=== PATIENT | female | born 1980 | race Caucasian/White ===

== ENCOUNTER 2017-02-26 12:32 | Emergency (ER) | payer MEDICAID ==
[~2017-02-26] VITALS: Ht 152.4 cm; Wt 105.5 kg
[2017-02-26 13:03] VITALS: Ht 152.4 cm; Wt 105.5 kg
[2017-02-26] MEDS ORDERED: ACET-2158 GTB (14:48)
--- NOTE | 2017-02-26 14:56 | ERD ---
ER Documentation Chief Complaint Date/Time DATE: 02/26/17 TIME: 14:51 Chief Complaint NOSEBLEED X2 HOURS. BLEEDING NOW CONTROLLED. 38 WKS . HPI 36-year-old female who is approximately 38 weeks presents the emergency department complaining of nosebleed 2 hours. Upon arrival patient's bleeding has subsided. Patient states that 2 weeks ago she experienced a nosebleed and applied ice to her forehead which stopped the bleeding. She states that today however applying ice to her forehead did not stop the bleeding. Patient notes that upon arrival and nurse applied pressure to the area which subsided the nosebleed. Patient notes an associated 2 out of 10 circumferential headache. Patient denies any fever, cough, congestion, or dizziness. Patient denies any abdominal or pelvic pain. Patient denies any vaginal bleeding or discharge. ROS All systems reviewed and are negative except as per history of present illness. Medications Home Meds Active Scripts Acetaminophen (TYLENOL 325 MG TAB) 325 Mg Tab, 650 MG GTB Q6 for 3 Days, TAB Prov:DEVANG NGUYEN PA-C 02/26/17 PMhx/Soc Medical and Surgical Hx: pt denies Medical Hx, pt denies Surgical Hx Hx Alcohol Use: No Hx Substance Use: No Hx Tobacco Use: No Smoking Status: Never smoker Physical Exam Vitals Vital Signs Date Time Temp Pulse Resp B/P Pulse Ox O2 Delivery O2 Flow Rate FiO2 02/26/17 13:03 98.8 96 20 119/72 98 Physical Exam Const: Well-developed, well-nourished, no acute distress Head: Atraumatic Eyes: Normal Conjunctiva ENT: No active bleeding during exam. Nares patent. Normal External Ears, Nose and Mouth. Neck: Full range of motion..~ No meningismus. Resp: Clear to auscultation bilaterally Cardio: Regular rate and rhythm, no murmurs Abd: Soft, non tender, non distended. Normal bowel sounds Skin: No petechiae or rashes Back: No midline or flank tenderness Ext: No cyanosis, or edema Neur: Awake and alert Psych: Normal Mood and Affect Procedures/MDM 36-year-old female who is 38 weeks presents with epistaxis which subsided upon pressure to the nares prior to arrival. Vital signs reviewed. Patient afebrile, normotensive, non-hypoxic and not tachycardic upon arrival. Patient denies any abdominal pain or pelvic cramping. Patient denies vaginal bleeding or discharge. Patient notes associated mild headache. The patient's headache is unlikely related to serious etiology. The patient does not exhibit any clinical signs or symptoms, and has no risk factors to suggest headache etiology such as subarachnoid hemorrhage, acute vertebral or carotid dissection , intracranial mass, epidural, subdural hematoma, dural venous sinus thrombosis , giant cell arteritis, or pseudotumor cerebri. Patient to continue Tylenol for headache pain as needed and follow-up with OB/ [facility] as scheduled. Based on patient's history of present illness and physical examination the decision was made to discharge. The patient was re-evaluated after ED treatment and stabilizing measures, and symptoms have improved. There is no evidence of life threatening injuries or illnesses at this time. On re-examination, patient resting in no distress, stable vital signs, reports feeling better and safe for discharge with outpatient follow up with PMD in 1-2 days. Patient given return precautions. Departure Diagnosis: Primary Impression: Epistaxis Condition: Stable Patient Instructions: Epistaxis (Adult) Additional Instructions: Call your primary care doctor TOMORROW for an appointment during the next 1-2 days.See the doctor sooner or return here if your condition worsens before your appointment time. DEVANG NGUYEN PA-C Feb 26, 2017 14:56
== END 2017-02-26 15:24 | disposition home or self-care (01) ==
LOC: FTE 12:32
DX: O99.89 Other specified diseases and conditions complicating pregnancy, childbirth and the puerperium (principal); R04.0 Epistaxis; Z3A.38 38 weeks gestation of pregnancy
CPT/HCPCS: 99283